=== PATIENT | male | born 1995 | race Caucasian/White ===

== ENCOUNTER 2018-05-10 01:47 | Emergency (ER) | END 2018-05-10 04:26 | disposition home or self-care (01) ==

== ENCOUNTER 2018-12-31 00:32 | Emergency (ER) | payer OTHER ==
[~2018-12-31] VITALS: Wt 62.0 kg
[~2018-12-31 00:32] MED LIST: ACET500C5 PO; DOXY100T20 PO; IBUP-1542 PO
--- NOTE | 2018-12-31 01:39 | ERD ---
ER Documentation Chief Complaint Chief Complaint RIGHT AP RADIATING TO GROIN X'S 3 DAYS HPI This is a 23-year-old male who presents here to the emergency department with complaints of right testicular pain for 2 days. Denies penile discharge/bleeding. Denies headache, head injury, loss of consciousness, dizziness, neck pain, neck stiffness, throat pain, difficulty swallowing, difficulty breathing lying flat, shoulder pain, chest pain, back pain, abdominal pain, nausea, vomiting, constipation, diarrhea, urinary symptoms, loss of bowel and bladder control, trauma, injury, falls, difficulty walking due to pain, numbness or tingling sensation, calf pain, recent travel, recent major surgery in the last 3 weeks, calf pain, recent long travel, recent exposure to any illness, recent antibiotic use in the last 3 months, fever, chills, seizures. Past medical history: Surgical history: Social: Denies smoking, use of alcoholic beverages, use of illegal drugs. ROS All systems reviewed and are negative except as per history of present illness. Medications Home Meds Active Scripts Ciprofloxacin Hcl* (Ciprofloxacin Hcl*) 500 Mg Tablet, 500 MG PO BID for 10 Days, TAB Prov:KATHY MATTSON F 12/31/18 Ibuprofen* (Motrin*) 800 Mg Tab, 800 MG PO Q6H PRN for PAIN AND OR ELEVATED TEMP, #30 TAB Prov:JACKIEKATHY MARTINEZ F 12/31/18 Acetaminophen* (Tylophen*) 500 Mg Capsule, 1 CAP PO Q6H PRN for PAIN AND OR ELEVATED TEMP, #20 CAP Prov:MEHRDAD MACIAS PA-C 05/10/18 Ibuprofen* (Motrin*) 600 Mg Tab, 600 MG PO Q6, #30 TAB Prov:MEHRDAD MACIAS PA-C 05/10/18 Doxycycline Hyclate* (Doxycycline Hyclate*) 100 Mg Tablet.dr, 100 MG PO BID for 10 Days, TAB Prov:MEHRDAD MACIAS PA-C 05/10/18 Allergies Allergies: Uncoded Allergies: NKDA (Allergy, Unknown, 12/31/18) PMhx/Soc History of Surgery: Yes (AVM repair) Anesthesia Reaction: No Hx Neurological Disorder: No Hx Respiratory Disorders: No Hx Cardiac Disorders: No Hx Psychiatric Problems: No Hx Miscellaneous Medical Probl: Yes (AVM) Hx Alcohol Use: No Hx Substance Use: No Hx Tobacco Use: No Smoking Status: Never smoker Physical Exam Vitals Vital Signs Date Temp Pulse Resp B/P (MAP) Pulse Ox O2 O2 Flow FiO2 Time Delivery Rate 12/31/18 97.9 58 18 112/59 100 Room Air 04:11 (76) 12/31/18 98.3 79 18 140/62 100 00:35 (88) Physical Exam Const: No acute distress Head: Atraumatic Eyes: Normal Conjunctiva ENT: Normal External Ears, Nose and Mouth. Neck: Full range of motion. No meningismus. Resp: Clear to auscultation bilaterally Cardio: Regular rate and rhythm, no murmurs Abd: Soft, non tender, non distended. Normal bowel sounds. Negative Jeff sign. Negative Armen sign (heel jar test). Negative psoas sign. Negative Rovsing sign. No CVA tenderness. : Penis is no swelling/tendernes s/discoloration. Penis is no bleeding/discharge. Swelling and tenderness to right scrotal/testicular area. No tenderness to left testicular area. Bilateral inguinal areas no swelling/discoloration/tenderness. Skin: No petechiae or rashes. No vesicular lesions. Back: No midline or flank tenderness Ext: No cyanosis, or edema Neur: Awake and alert. No neurological deficits. Psych: Normal Mood and Affect Results 24 hrs Laboratory Tests Test 12/31/18 01:49 Urine Color YELLOW Urine Clarity CLEAR Urine pH 5.0 Urine Specific [place] 1.039 Urine Ketones TRACE mg/dL Urine Nitrite NEGATIVE mg/dL Urine Bilirubin NEGATIVE mg/dL Urine Urobilinogen 2+ mg/dL Urine Leukocyte Esterase NEGATIVE Kirti/ul Urine Hemoglobin NEGATIVE mg/dL Urine Glucose NEGATIVE mg/dL Urine Total Protein NEGATIVE mg/dl Current Medications Medications Dose Sig/Jesus Start Time Status Last (Trade) Ordered Route PRN Stop Time Admin Dose Reason Admin 1 tab ONCE ONCE 12/31/18 DC 12/31/18 Acetaminophen PO 02:00 01:49 / 12/31/18 02:01 Hydrocodone Bitart ([place] (5/325)) Procedures/MDM Throat Diagnostic tests: Urinalysis: Reviewed. Ultrasound of scrotum/testicular area: No sonographic evidence for testicular torsion. Mildly enlarged right epididymis with increased flow suggestive of epididymitis. Clinical correlation is necessary. Mild right hydrocele. Treatment: [place] p.o. Re-evaluation: Denies pain. Bilateral inguinal areas no swelling/tenderness/discoloration. No CVA tenderness. Negative Jeff sign. Negative Armen sign (heel jar test). Negative psoas sign. Negative Rovsing sign. Able to jump 10 times without developing lower abdominal pain. Differential diagnosis I have low suspicion for cholecystitis, pancreatitis, diverticulitis, diverticulitis with abscess, appendicitis, ruptured appendicitis, inguinal hernia, inguinal hernia with incarceration/strangulation, obstructing kidney stones, septic stone, renal failure, testicular torsion. Final diagnosis: Epididymitis. Patient insists antibiotic. Prescription: Ciprofloxacin. Motrin. Follow-up with PCP in the next 24-48 hours. PCP to refer patient to urologist in the next 24 to 48 hours. Come back here in the emergency department for any new symptoms or any worsening symptoms. All questions and concerns were answered. Patient and family members verbalized understanding and agreed with plan of care. Hemodynamically stable on discharge. Departure Diagnosis: Primary Impression: Epididymitis Condition: Stable Additional Instructions: Follow-up with PCP in the next 24-48 hours. PCP to refer patient to urologist in the next 24 to 48 hours. Come back here in the emergency department for any new symptoms or any worsening symptoms. KATHY MATTSON December 31, 2018 01:39
[2018-12-31] MEDS ORDERED: HYDROCODONE/APAP (5/325) TAB PO ONE (02:00)
[2018-12-31] MEDS ORDERED: CIPR500T4 PO (03:52)
[2018-12-31] MEDS ORDERED: IBUP800T48 PO (03:52)
[2018-12-31 04:11] VITALS: BP 112/59; PULSE 58; RESP 18
== END 2018-12-31 04:12 | disposition home or self-care (01) ==
LOC: FTE 00:32
DX: N45.1 Epididymitis (principal)
CPT/HCPCS: 76870; 81003; Z7502; Z7610